=== PATIENT | male | born 1945 ===

== ENCOUNTER 2023-08-14 19:10 | Emergency (ER) | payer MEDICARE, OTHER ==
[2023-08-14 19:28] LABS: BASO # 0.1 10*3/uL (0.0-0.1); BASO % 0.7 % (0.0-1.0); EOS # 0.3 10*3/uL (0.0-0.4); EOS % 2.7 % (1.0-4.0); HEMATOCRIT 40.1 % (42.0-52.0); LYMPH % 20.9 % (27.0-41.0); MEAN CELL VOLUME 92.2 fl (80.0-94.0); MEAN CORPUSCULAR HGB 29.4 pg (27.0-31.0); MEAN CORPUSCULAR HGB CONC 31.9 g/dl (33.0-37.0); MEAN PLATELET VOLUME 9.3 fl (9.6-12.3); MONO # 0.9 10*3/uL (0.1-1.0); MONO % 9.7 % (3.0-9.0); NEUT # 6.3 10*3/uL (2.3-7.9); NEUT % 65.8 % (47.0-73.0); PLATELET COUNT AUTOMATED 294 10*3/uL (130-400); RED BLOOD COUNT 4.35 10*6/uL (4.50-5.90); RED CELL DISTRI WIDTH 12.8 % (0-14.5); WHITE BLOOD COUNT 9.6 10*3/uL (4.8-10.8)
[2023-08-14] MEDS ORDERED: NORVASC10 MG PO (19:31)
[2023-08-14 19:45] LABS: ALKALINE PHOSPHATASE 114 U/L (46-116); BUN 14 mg/dl (9-23); CHLORIDE 105 mmol/L (98-107); POTASSIUM 4.1 mmol/L (3.4-5.1); SGPT/ALT 9 U/L (5-49); TOTAL PROTEIN 6.8 gm/dL (6.0-8.0)
[2023-08-14 19:46] LABS: ETHYL ALCOHOL < 3.0 mg/dl (<3)
[2023-08-14 20:15] LABS: BILIRUBIN Negative (Negative); BLOOD Negative (Negative); CLARITY Clear (Clear); COLOR Yellow (Yellow); GLUCOSE Negative (Negative); KETONE Negative (Negative); LEUKO ESTERASE Trace (Negative); NITRITE Negative (Negative); UROBILINOGEN 0.2 E.U./dl (0.0-1.0)
[2023-08-14 20:24] LABS: URINE AMPHETAMINES Negative (1000ng/ml); URINE BARBITURATES Negative (200ng/ml); URINE BENZODIAZEPINES Negative (200ng/ml); URINE CANNABINOIDS (THC) Negative (50ng/ml); URINE COCAINE Negative (300ng/ml); URINE METHADONE Negative (300ng/ml); URINE OPIATES Negative (300ng/ml); URINE PHENCYCLIDINE Negative (25ng/ml)
[2023-08-14] MEDS ORDERED: BENAZEPRIL20 MG PO (20:52)
[2023-08-14] MEDS ORDERED: CITALOPRAM40 MG PO (20:53)
[2023-08-14] MEDS ORDERED: MELOXICAM15 MG PO (20:54)
[2023-08-14] MEDS ORDERED: DULOXETINE HCL20 MG PO (20:54)
[2023-08-14] MEDS ORDERED: MYRBETRIQ25 M1 PO (20:54)
[2023-08-14] MEDS ORDERED: FLOMAX0.4 MG PO (20:56)
[2023-08-14] MEDS ORDERED: OMEPRAZOLE40 MG PO (20:56)
[2023-08-14] MEDS ORDERED: TOPROL XL25 MG PO (20:57)
[2023-08-14] MEDS ORDERED: VITAMIN C1000 M5 PO (20:58)
[2023-08-14] MEDS ORDERED: ZINC50 M4 PO ×2 (20:59→22:18)
[2023-08-14] MEDS ORDERED: ELIQUIS5 M1 PO (21:00)
[2023-08-14] MEDS ORDERED: MEMANTINE HCL10 MG PO (21:01)
[2023-08-14] MEDS ORDERED: BUSPIRONE HCL10 MG PO (21:01)
[2023-08-14] MEDS ORDERED: AIRSUPRA 90-810.7 GM INH (21:03)
[2023-08-14] MEDS ORDERED: ACETAMINOPHEN500 M5 PO (21:03)
[2023-08-14] MEDS ORDERED: ATIVAN0.5 MG PO (21:04)
[2023-08-14] MEDS ORDERED: BENADRYL ALLERG25 M5 PO (21:05)
== END 2023-08-14 21:33 ==
LOC: ED 19:10
PROVIDERS: Internal Medicine
DX: F32.9 Major depressive disorder, single episode, unspecified (principal); F63.81 Intermittent explosive disorder; D64.9 Anemia, unspecified; F03.90 Unspecified dementia, unspecified severity, without behavioral disturbance, psychotic disturbance, mood disturbance, and anxiety; F32.A Depression, unspecified; K21.9 Gastro-esophageal reflux disease without esophagitis; I10 Essential (primary) hypertension; E11.9 Type 2 diabetes mellitus without complications; E78.5 Hyperlipidemia, unspecified

== ENCOUNTER 2023-08-14 20:54 | Inpatient (IN) | payer MEDICARE, OTHER ==
[~2023-08-14 20:54] MED LIST: BENAZEPRIL20 MG PO; CITALOPRAM40 MG PO; DULOXETINE HCL20 MG PO; MELOXICAM15 MG PO; MYRBETRIQ25 M1 PO; NORVASC10 MG PO
[2023-08-14] MEDS ORDERED: OMEPRAZOLE40 MG PO (20:56)
[2023-08-14] MEDS ORDERED: FLOMAX0.4 MG PO (20:56)
[2023-08-14] MEDS ORDERED: TOPROL XL25 MG PO (20:57)
[2023-08-14] MEDS ORDERED: VITAMIN C1000 M5 PO (20:58)
[2023-08-14] MEDS ORDERED: ZINC50 M4 PO ×2 (20:59→22:18)
[2023-08-14] MEDS ORDERED: ELIQUIS5 M1 PO (21:00)
[2023-08-14] MEDS ORDERED: BUSPIRONE HCL10 MG PO (21:01)
[2023-08-14] MEDS ORDERED: MEMANTINE HCL10 MG PO (21:01)
[2023-08-14] MEDS ORDERED: ACETAMINOPHEN500 M5 PO (21:03)
[2023-08-14] MEDS ORDERED: AIRSUPRA 90-810.7 GM INH (21:03)
[2023-08-14] MEDS ORDERED: ATIVAN0.5 MG PO (21:04)
[2023-08-14] MEDS ORDERED: BENADRYL ALLERG25 M5 PO (21:05)
[2023-08-14] MEDS ORDERED: Ziprasidone Mesylate 20 MG VIAL IM PRN (22:20)
[2023-08-14] MEDS ORDERED: LORazepam 1 MG TAB PO PRN (22:20)
[2023-08-14] MEDS ORDERED: Magnesium Hydroxide 30 ML UDC PO PRN (22:35)
[2023-08-14] MEDS ORDERED: ACETAMINOPHEN 325 MG TAB PO PRN (22:35)
[2023-08-14] MEDS ORDERED: MG-AL HYDROXIDE/SIMETICONE 30 ML UDC PO PRN (22:35)
[2023-08-14] MEDS ORDERED: Menthol/Zinc Oxide 4 GM THIN T PRN (22:50)
[2023-08-14] MEDS ORDERED: AIRSUPRA INH PRN (23:35)
[2023-08-15] MEDS ORDERED: Pantoprazole Sodium 40 MG TAB PO SCH (06:00)
[2023-08-15 07:40] LABS: BASO # 0.1 10*3/uL (0.0-0.1); BASO % 0.8 % (0.0-1.0); EOS # 0.3 10*3/uL (0.0-0.4); EOS % 4.1 % (1.0-4.0); HEMATOCRIT 38.4 % (42.0-52.0); LYMPH # 1.7 10*3/uL (1.3-4.4); LYMPH % 23.1 % (27.0-41.0); MEAN CELL VOLUME 91.6 fl (80.0-94.0); MEAN CORPUSCULAR HGB 29.4 pg (27.0-31.0); MEAN PLATELET VOLUME 9.2 fl (9.6-12.3); MONO # 0.7 10*3/uL (0.1-1.0); NEUT # 4.5 10*3/uL (2.3-7.9); NEUT % 61.5 % (47.0-73.0); PLATELET COUNT AUTOMATED 267 10*3/uL (130-400); RED BLOOD COUNT 4.19 10*6/uL (4.50-5.90); RED CELL DISTRI WIDTH 12.9 % (0-14.5); WHITE BLOOD COUNT 7.3 10*3/uL (4.8-10.8)
[2023-08-15 08:04] LABS: ALKALINE PHOSPHATASE 104 U/L (46-116); BUN 12 mg/dl (9-23); CHLORIDE 106 mmol/L (98-107); CHOLESTEROL 145 mg/dL (<200); LDL CHOLESTEROL 100 mg/dL (9-159); POTASSIUM 3.9 mmol/L (3.4-5.1); SGPT/ALT 9 U/L (5-49); TOTAL PROTEIN 6.1 gm/dL (6.0-8.0); TRIGLYCERIDES 45 mg/dl (<150)
[2023-08-15 08:24] LABS: VITAMIN D, 25-HYDROXY 19.6 ng/mL (30-100)
[2023-08-15 08:46] VITALS: BP 142/80
[2023-08-15] MEDS ORDERED: Rivastigmine Tartrate 4.6 MG/24 HR PATCH T SCH (09:00)
[2023-08-15] MEDS ORDERED: DIVALPROEX (DR) 250 MG TAB PO SCH (09:00)
[2023-08-15] MEDS ORDERED: ASCORBIC ACID 500 MG TAB PO SCH (09:00)
[2023-08-15] MEDS ORDERED: APIXABAN 5 MG TAB PO SCH (10:00)
[2023-08-15] MEDS ORDERED: LISINOPRIL 20 MG TAB PO SCH (10:00)
[2023-08-15] MEDS ORDERED: Tamsulosin Hydrochloride 0.4 MG CAP PO SCH (10:00)
[2023-08-15] MEDS ORDERED: MIRABEGRON 25 MG PO SCH (10:00)
[2023-08-15] MEDS ORDERED: METOPROLOL SUCCINATE XR 25 MG TAB PO SCH (10:00)
[2023-08-15] MEDS ORDERED: amLODIPine besylate 10 MG TAB PO SCH (10:00)
[2023-08-15] MEDS ORDERED: Memantine Hydrochloride 10 MG TAB PO SCH (10:00)
[2023-08-15 19:03] VITALS: BP 120/57
[2023-08-16 08:26] VITALS: BP 141/69
[2023-08-16] MEDS ORDERED: Cholecalciferol 5,000 IU CAP (125 MCG) PO SCH (09:00)
[2023-08-16] MEDS ORDERED: CYANOCOBALAMIN 1,000 MCG/ML VIAL IM SCH (10:30)
[2023-08-16] MEDS ORDERED: Albuterol Sulf/Ipratropium 3 ML VIAL NEB PRN (16:30)
[2023-08-16 20:00] VITALS: BP 138/62
[2023-08-17 08:00] VITALS: BP 120/76
[2023-08-17 20:00] VITALS: BP 118/80
[2023-08-18] MEDS ORDERED: FOAM BANDAGE 5X5 T ONE (02:18)
[2023-08-18 07:42] VITALS: BP 120/80
[2023-08-18] MEDS ORDERED: Rivastigmine Tartrate 9.5 MG/24 HR PATCH T SCH (09:00)
[2023-08-18 20:00] VITALS: BP 123/71
[2023-08-19 08:31] VITALS: BP 130/78
[2023-08-19] MEDS ORDERED: FOAM BANDAGE 4X4 T ONE (09:55)
[2023-08-19 20:00] VITALS: BP 124/76
[2023-08-20 07:55] VITALS: BP 142/86
[2023-08-20] MEDS ORDERED: RIVASTIGMINE 13.3 MG/24 HR TDM T SCH (09:00)
[2023-08-20] MEDS ORDERED: hydrOXYzine pamoate 25 MG CAP PO PRN (11:05)
[2023-08-20 20:00] VITALS: BP 119/72
[2023-08-21 07:43] VITALS: BP 132/76
[2023-08-21] MEDS ORDERED: FOAM BANDAGE 5X5 T ONE (11:49)
[2023-08-21] MEDS ORDERED: hydrOXYzine hydrochloride 10 MG TAB PO SCH (13:00)
[2023-08-21 20:00] VITALS: BP 130/70
[2023-08-21] MEDS ORDERED: Mirtazapine 15 MG TAB PO SCH (21:00)
[2023-08-22 08:00] VITALS: BP 143/70
[2023-08-22 20:00] VITALS: BP 123/78
[2023-08-23 08:09] VITALS: BP 132/74
[2023-08-23] MEDS ORDERED: BUDESONIDE 0.5 MG AMP NEB PRN (15:35)
[2023-08-23] MEDS ORDERED: hydrOXYzine pamoate 25 MG CAP PO SCH (16:00)
[2023-08-23 20:00] VITALS: BP 128/84
[2023-08-23] MEDS ORDERED: hydrOXYzine hydrochloride 10 MG TAB PO SCH (21:00)
[2023-08-24] MEDS ORDERED: ZINC SULFATE 220 MG TAB PO SCH (09:00)
[2023-08-24 20:00] VITALS: BP 127/78
[2023-08-25 08:00] VITALS: BP 125/83
[2023-08-25 20:00] VITALS: BP 126/69
[2023-08-26 08:13] VITALS: BP 147/75
[2023-08-26 20:00] VITALS: BP 124/70
[2023-08-27 07:53] VITALS: BP 107/63
[2023-08-27 20:00] VITALS: BP 123/61
[2023-08-28 06:14] LABS: ALKALINE PHOSPHATASE 112 U/L (46-116); BUN 19 mg/dl (9-23); CHLORIDE 109 mmol/L (98-107); POTASSIUM 4.3 mmol/L (3.4-5.1); SGPT/ALT 29 U/L (5-49)
[2023-08-28 07:45] VITALS: BP 137/73
[2023-08-28] MEDS ORDERED: ZINC SULFATE50 MG PO (10:07)
[2023-08-28] MEDS ORDERED: ATARAX,VISTARIL10 MG PO (10:07)
[2023-08-28] MEDS ORDERED: MEMANTINE HCL10 MG PO (10:07)
[2023-08-28] MEDS ORDERED: HYDROXYZINE HCL25 MG PO (10:07)
[2023-08-28] MEDS ORDERED: MIRTAZAPINE15 M2 PO (10:07)
[2023-08-28] MEDS ORDERED: RIVASTIGMINE1 EAC2 T (10:07)
== END 2023-08-28 13:48 | disposition home or self-care (01) | DRG 885 ==
LOC: 3N 20:54
PROVIDERS: Nurse Practitioner Women's Health; ADMIT Psychiatry & Neurology Psychiatry; ATTEND Psychiatry & Neurology Psychiatry
DX: F33.3 Major depressive disorder, recurrent, severe with psychotic symptoms (principal); F63.81 Intermittent explosive disorder; E11.65 Type 2 diabetes mellitus with hyperglycemia; E44.0 Moderate protein-calorie malnutrition; R45.851 Suicidal ideations; G30.9 Alzheimer's disease, unspecified; F02.80 Dementia in other diseases classified elsewhere, unspecified severity, without behavioral disturbance, psychotic disturbance, mood disturbance, and anxiety; D50.9 Iron deficiency anemia, unspecified; F41.9 Anxiety disorder, unspecified; K21.9 Gastro-esophageal reflux disease without esophagitis; I10 Essential (primary) hypertension; S61.411A Laceration without foreign body of right hand, initial encounter; G47.00 Insomnia, unspecified; N40.0 Benign prostatic hyperplasia without lower urinary tract symptoms; J45.20 Mild intermittent asthma, uncomplicated; E55.9 Vitamin D deficiency, unspecified; Z86.718 Personal history of other venous thrombosis and embolism; X58.XXXA Exposure to other specified factors, initial encounter; Y93.89 Activity, other specified; Y92.89 Other specified places as the place of occurrence of the external cause; Y99.8 Other external cause status

== ENCOUNTER 2023-09-04 12:37 | Emergency (ER) | payer MEDICARE, OTHER ==
[~2023-09-04] VITALS: Wt 79.4 kg
[~2023-09-04 12:37] MED LIST changes: +ACETAMINOPHEN500 M5 PO; +AIRSUPRA 90-810.7 GM INH; +ATARAX,VISTARIL10 MG PO; +ATIVAN0.5 MG PO; +BENADRYL ALLERG25 M5 PO; +BUSPIRONE HCL10 MG PO; +ELIQUIS5 M1 PO; +FLOMAX0.4 MG PO; +HYDROXYZINE HCL25 MG PO; +MEMANTINE HCL10 MG PO; +MIRTAZAPINE15 M2 PO; +OMEPRAZOLE40 MG PO; +RIVASTIGMINE1 EAC2 T; +TOPROL XL25 MG PO; +VITAMIN C1000 M5 PO; +ZINC SULFATE50 MG PO; +ZINC50 M4 PO
[2023-09-04 13:45] LABS: BASO # 0.1 10*3/uL (0.0-0.1); BASO % 0.8 % (0.0-1.0); EOS # 0.5 10*3/uL (0.0-0.4); EOS % 5.6 % (1.0-4.0); HEMATOCRIT 39.8 % (42.0-52.0); LYMPH # 1.8 10*3/uL (1.3-4.4); LYMPH % 19.6 % (27.0-41.0); MEAN CELL VOLUME 94.1 fl (80.0-94.0); MEAN CORPUSCULAR HGB 29.3 pg (27.0-31.0); MEAN CORPUSCULAR HGB CONC 31.2 g/dl (33.0-37.0); MEAN PLATELET VOLUME 9.7 fl (9.6-12.3); MONO # 0.8 10*3/uL (0.1-1.0); MONO % 9.4 % (3.0-9.0); NEUT # 5.8 10*3/uL (2.3-7.9); NEUT % 64.3 % (47.0-73.0); PLATELET COUNT AUTOMATED 292 10*3/uL (130-400); RED BLOOD COUNT 4.23 10*6/uL (4.50-5.90); RED CELL DISTRI WIDTH 12.8 % (0-14.5)
[2023-09-04 13:57] LABS: ACT PARTIAL THROMBO TIME 28.3 SECONDS (20.0-32.1)
[2023-09-04 14:09] LABS: ALKALINE PHOSPHATASE 119 U/L (46-116); BUN 14 mg/dl (9-23); CHLORIDE 108 mmol/L (98-107); CPK 99 U/L (34-171); LIPASE 35 U/L (12-53); POTASSIUM 3.8 mmol/L (3.4-5.1); SGPT/ALT 26 U/L (5-49); TOTAL PROTEIN 6.3 gm/dL (6.0-8.0)
[2023-09-04 14:15] LABS: ETHYL ALCOHOL < 3.0 mg/dl (<3)
[2023-09-04 14:33] LABS: BILIRUBIN Negative (Negative); BLOOD Negative (Negative); CLARITY Clear (Clear); COLOR Yellow (Yellow); GLUCOSE Negative (Negative); KETONE Negative (Negative); LEUKO ESTERASE Negative (Negative); NITRITE Negative (Negative); PH 7.5 (4.5-8.0); UROBILINOGEN 0.2 E.U./dl (0.0-1.0)
[2023-09-04 14:41] LABS: URINE AMPHETAMINES Negative (1000ng/ml); URINE BARBITURATES Negative (200ng/ml); URINE BENZODIAZEPINES Negative (200ng/ml); URINE CANNABINOIDS (THC) Negative (50ng/ml); URINE COCAINE Negative (300ng/ml); URINE METHADONE Negative (300ng/ml); URINE OPIATES Negative (300ng/ml); URINE PHENCYCLIDINE Negative (25ng/ml)
[2023-09-04 14:46] LABS: EPITHELIAL CELLS 0-2; RBC 0-2 rbc/hpf (0-2)
== END 2023-09-04 16:59 ==
LOC: ED 12:37
PROVIDERS: Internal Medicine
DX: F63.81 Intermittent explosive disorder (principal); F03.90 Unspecified dementia, unspecified severity, without behavioral disturbance, psychotic disturbance, mood disturbance, and anxiety; Z20.822 Contact with and (suspected) exposure to COVID-19; F32.A Depression, unspecified; K21.9 Gastro-esophageal reflux disease without esophagitis; I10 Essential (primary) hypertension; E11.9 Type 2 diabetes mellitus without complications; F41.9 Anxiety disorder, unspecified